=== PATIENT | female | born 1950 | race Caucasian/White ===

== ENCOUNTER 2018-10-01 11:30 | Outpatient (CLI) | payer BC, MEDICARE, SELFPAY ==
[2018-10-01 12:28] LABS: Bilirubin Negative (Negative); Blood Moderate (Negative); Clarity Clear; Glucose Negative (Negative); Ketones Negative (Negative); Leukocyte Esterase Small (Negative); Nitrite Positive (Negative); Urobilinogen 0.2 EU/dL (Up TO 0.2)
[2018-10-01 12:34] LABS: Epithelial Cells Few HPF (Negative)
[2018-10-01 12:35] LABS: Casts Negative LPF (Negative); Crystals Negative HPF (Negative); Mucus Negative (Negative)
[2018-10-01 12:45] LABS: WBC >50 HPF (0-5)
[2018-10-01 12:46] LABS: Bacteria Many HPF (Negative); C & S Indicated? C&S Done As Ordered
== END 2018-10-01 11:50 ==
PROVIDERS: Visit Provider Urology
DX: R31.0 Gross hematuria (principal)
CPT/HCPCS: 87077; 81003; 81015; 87086; 87186